=== PATIENT | male | born 1975 | race Caucasian/White ===

== ENCOUNTER 2017-04-17 19:30 | Emergency (ER) | payer SELFPAY ==
[~2017-04-17] VITALS: Ht 165.1 cm; Wt 72.6 kg
--- NOTE | 2017-04-17 19:37 | NUR ---
PT AMBULATORY TO ER BED 14. PRESENTS W/ LUE AND L KNEE PAIN AND SWELLING. PT ADMITS TO SHOOTING HEROIN INTRAMUSCULAR. GOWNED AND PLACED ON MONITOR. NAD NOTED. AWAITING MD BELLO.
[2017-04-17 21:29] LABS: CALCIUM, SERUM 8.6 mg/dL (8.5-10.1); CARBON DIOXIDE 23 mmol/L (21-32); CHLORIDE 102 mmol/L (98-107); CREATININE 0.9 mg/dL (0.6-1.3); GLUCOSE 156 mg/dL (74-106); POTASSIUM 3.9 mmol/L (3.5-5.1); SODIUM SERUM 134 mmol/L (136-145); UREA NITROGEN, BLOOD 16 mg/dL (7-18)
--- NOTE | 2017-04-17 21:39 | NUR ---
PT TO RADIOLOGY FOR CHEST CTA VIA [facility].
[2017-04-17] MEDS ORDERED: IOHEXOL-350 100 ML VIAL IV ONE (21:41)
[2017-04-17 21:47] LABS: B-TYPE NATRIURETIC PEPTIDE 59 PG/ML (0-125)
[2017-04-17 21:48] LABS: BASOPHILS % (AUTO) 0.3 % (0.0-2.0); EOSINOPHILS # (AUTO) 0.2 /CMM (0.0-0.7); EOSINOPHILS % (AUTO) 1.7 % (0.0-6.0); HEMATOCRIT 34 % (39-51); HEMOGLOBIN 11.2 g/dL (13.5-17.5); LYMPHOCYTES # (AUTO) 1.4 /CMM (0.8-4.8); MEAN CORPUSCULAR HEMOGLOBIN 25 PG (26.0-33.0); MEAN CORPUSCULAR HGB CONC 33 g/dl (31.0-36.0); MEAN CORPUSCULAR VOLUME 76 fL (80-96); MONOCYTES # (AUTO) 0.6 /CMM (0.1-1.30); MONOCYTES % (AUTO) 6.1 % (2.0-12.0); NEUTROPHILS # (AUTO) 7.8 /CMM (1.8-8.9); NEUTROPHILS % (AUTO) 77.9 % (43.0-81.0); PLATELET COUNT (AUTO) 388 /CMM (150-450); RED BLOOD CELL COUNT(AUTO) 4.45 MIL/uL (4.5-6.0); WHITE BLOOD COUNT (AUTO) 9.9 K/uL (4.3-11.0)
[2017-04-17 21:51] LABS: TROPONIN I < 0.017 ng/mL (0.00-0.056)
--- NOTE | 2017-04-17 22:06 | NUR ---
U/S TECH AT BEDSIDE FOR DUPLEX ULTRASOUND.
[2017-04-17 22:17] LABS: D-DIMER 1.33 mg/L(FEU (0.17-0.50); INR 0.88 (0.87-1.13)
[2017-04-17] MEDS ORDERED: CEFTRIAXONE 1 G VIAL ONE (22:45)
[2017-04-17] MEDS ORDERED: LIDOCAINE /MPF 1% VIAL 5 ML VIAL ONE (22:46)
[2017-04-17] MEDS: CEFTRIAXONE 1GM BAG (ER ONLY) 50 ML IV ONE (22:54)
--- NOTE | 2017-04-17 22:55 | NUR ---
Patient discharged to home in stable condition. Written and verbal after care instructions given. Patient verbalizes understanding of instruction.IV removed. Catheter intact and site benign. Pressure and 4x4 applied to site. No bleeding noted.
[2017-04-17 22:56] VITALS: BP 128/80
== END 2017-04-17 22:57 | disposition home or self-care (01) ==
LOC: ER 19:30
DX: S83.92XA Sprain of unspecified site of left knee, initial encounter (principal); L03.114 Cellulitis of left upper limb; D50.9 Iron deficiency anemia, unspecified; F19.10 Other psychoactive substance abuse, uncomplicated; X58.XXXA Exposure to other specified factors, initial encounter; Y93.89 Activity, other specified; Y92.89 Other specified places as the place of occurrence of the external cause; Y99.8 Other external cause status
CPT/HCPCS: 36415; 73564-TC; 80048-TC; 83605-TC; 83880; 84484-TC; 85025-TC; 85378-TC; 85730-TC; 87040-TC; 93971-TC; A4606; J0696; J3490; Q9967; Z7610

== ENCOUNTER 2017-05-16 02:04 | Emergency (ER) | payer SELFPAY ==
[~2017-05-16] VITALS: Ht 172.7 cm; Wt 72.6 kg
[2017-05-16 02:54] VITALS: BP 132/84
--- NOTE | 2017-05-16 02:54 | NUR ---
PT TO ER BED 7. PT BIB SELF FROM STREET, PT C/O ABSCESSES ON LEFT SHOULDER AND RIGHT THIGH. PT PLACED ON INVESTIGATOR VICE. VSS/RESP EVEN UNLABORED/NAD NOTED/SKIN WARM AND DRY/DENIES N-V-D/ AFEBRILE/AOX4. AWAITING MD BELLO.
== END 2017-05-16 05:38 | disposition home or self-care (01) ==
LOC: ER 02:04
DX: F11.10 Opioid abuse, uncomplicated (principal); R76.11 Nonspecific reaction to tuberculin skin test without active tuberculosis
CPT/HCPCS: 71045; 99284; A4606; Z7610

== ENCOUNTER 2017-06-04 09:30 | Inpatient (IN) | payer MEDICAID ==
[~2017-06-04] VITALS: Ht 165.1 cm; Wt 81.6 kg
[2017-06-04 10:31] LABS: BASOPHILS % (AUTO) 0.3 % (0.0-2.0); EOSINOPHILS % (AUTO) 3.4 % (0.0-6.0); HEMATOCRIT 34 % (39-51); HEMOGLOBIN 11.6 g/dL (13.5-17.5); LYMPHOCYTES % (AUTO) 27.5 % (20.0-44.0); MEAN CORPUSCULAR HEMOGLOBIN 26 PG (26.0-33.0); MEAN CORPUSCULAR HGB CONC 34 g/dl (31.0-36.0); MEAN CORPUSCULAR VOLUME 77 fL (80-96); MONOCYTES % (AUTO) 7.8 % (2.0-12.0); PLATELET COUNT (AUTO) 413 /CMM (150-450); RDW COEFFICIENT OF VARIATION 15.6 (11.5-15.0); RED BLOOD CELL COUNT(AUTO) 4.49 MIL/uL (4.5-6.0); WHITE BLOOD COUNT (AUTO) 6.9 K/uL (4.3-11.0)
[2017-06-04 10:32] LABS: EOSINOPHILS # (AUTO) 0.2 /CMM (0.0-0.7); LYMPHOCYTES # (AUTO) 1.9 /CMM (0.8-4.8); MONOCYTES # (AUTO) 0.5 /CMM (0.1-1.30); NEUTROPHILS # (AUTO) 4.2 /CMM (1.8-8.9)
[2017-06-04 10:50] LABS: CALCIUM, SERUM 8.8 mg/dL (8.5-10.1); CREATININE 1.1 mg/dL (0.6-1.3); POTASSIUM 3.8 mmol/L (3.5-5.1)
[2017-06-04] MEDS ORDERED: IOHEXOL-300 100 ML VIAL IV ONE (11:47)
[2017-06-04] MEDS ORDERED: IV NS 0.9% 0 ML IV ONE (11:47)
--- NOTE | 2017-06-04 11:53 | NUR ---
CALLED NURSING SUPERVIVOR, REQUESTED A MED LINE.
--- NOTE | 2017-06-04 13:12 | NUR ---
MD HOLM FOR CT WITHOUT CONTRAST. PAGED RADIOLOGY
[2017-06-04] MEDS ORDERED: PIPERACILLIN /TAZOBACTAM 3.375 G in IV D5W 50 ML IV ONE (16:30)
[2017-06-04] MEDS ORDERED: VANCOMYCIN 1 GM in IV D5W 250 ML IV ONE (16:30)
--- NOTE | 2017-06-04 16:44 | NUR ---
DR COPE SPEAKING WITH ANA AT THIS TIME
[2017-06-04 17:00] VITALS: BP 154/95
--- NOTE | 2017-06-04 17:53 | NUR ---
RN NOTES: GLEN CHRISTIANSEN,YANCY, REGULAR DIET
[2017-06-04] MEDS ORDERED: Z GUARD REMEDY 2 OZ OINT TP PRN (18:30)
[2017-06-04] MEDS ORDERED: ONDANSETRON HCL/PF 4 MG/2 ML VIAL IVP PRN (18:30)
[2017-06-04] MEDS ORDERED: ENOXAPARIN SODIUM 40 MG/0.4 ML DISP.SYRIN SQ SCH (18:30)
[2017-06-04] MEDS ORDERED: ACETAMINOPHEN 325 MG TABLET PO PRN (18:30)
[2017-06-04] MEDS ORDERED: MAGNESIUM HYDROXIDE 30 ML UDC PO PRN (18:30)
[2017-06-04] MEDS ORDERED: ZOLPIDEM TARTRATE 5 MG TABLET PO PRN (18:30)
[2017-06-04] MEDS: IV NS 0.9% 1,000 ML IV PRN (18:41)
--- NOTE | 2017-06-04 19:10 | NUR ---
RN NOTES: PATIENT ADMITTED TO UNIT AT 1700 FROM ER. PATIENT STABLE. NONLABORED BREATHING NOTED ON ROOM AIR. NO SIGNS OF DISTRESS. PATIENT HAS A PATENT MIDLINE ON LEFT UPPER ARM AND IS INTACT. PATIENT'S WOUND ASSESSED AND PICTURES PLACED IN CART. NO OOZING NOTED AT THE MOMENT. PATIENT DENYING PAIN. NONPITTING EDEMA NOTED ON BOTH UPPER EXTREMITIES. PATIENT DENYING NAUSEA AND DENYING VOMITING. NO SEIZURES NOTED. BED IN LOWEST LOCKED POSITION. CALL LIGHT WITHIN REACH. PATIENT DENYING HALLUCINATIONS, EDUCATED ON SIGNS AND SYMPTOMS OF WITHDRAWAL. PATIENT VERBALIZED UNDERSTANDING. ENDORSED TO NEXT SHIFT
[2017-06-04 20:00] VITALS: BP 129/78
[2017-06-04] MEDS: HYDROCODONE/APAP 5/325MG 1 EACH TABLET PO PRN (22:26)
--- NOTE | 2017-06-04 22:26 | NUR ---
ANTWON GEN PAIN JELENA HIS BONE PATIENT STATED. 1 TAB OF NORCO ADMINISTERED. BEDREST INSTRUCTED.
[2017-06-05] MEDS: LORAZEPAM 1 MG TABLET PO PRN ×2 (00:15→07:38)
--- NOTE | 2017-06-05 00:30 | NUR ---
MSRN VERBALIZES INCREASING ANXIETY, WANTED XANAX. PLACED CALL TO DR MORA, ORDERS RECEIVED TO GIVE ATIVAN 1MG PO Q 6 PRN. FIRST DOSE ADMIISTERED.
--- NOTE | 2017-06-05 03:47 | NUR ---
MSRN SLEEPING APPEARS COMFORTABLE. CLOSELY WATCHED.
[2017-06-05] MEDS: HYDROCODONE/APAP 5/325MG 1 EACH TABLET PO PRN (04:33)
--- NOTE | 2017-06-05 06:47 | NUR ---
MSRN SLEPT WELL FROM ATIVAN, IVF CONTINUED.
[2017-06-05 07:22] LABS: BASOPHILS % (AUTO) 0.2 % (0.0-2.0); EOSINOPHILS # (AUTO) 0.1 /CMM (0.0-0.7); EOSINOPHILS % (AUTO) 1.6 % (0.0-6.0); HEMATOCRIT 34 % (39-51); HEMOGLOBIN 11.6 g/dL (13.5-17.5); LYMPHOCYTES # (AUTO) 1.4 /CMM (0.8-4.8); MEAN CORPUSCULAR HEMOGLOBIN 26 PG (26.0-33.0); MEAN CORPUSCULAR HGB CONC 34 g/dl (31.0-36.0); MEAN CORPUSCULAR VOLUME 77 fL (80-96); MONOCYTES # (AUTO) 0.5 /CMM (0.1-1.30); MONOCYTES % (AUTO) 5.6 % (2.0-12.0); NEUTROPHILS # (AUTO) 6.2 /CMM (1.8-8.9); NEUTROPHILS % (AUTO) 75.6 % (43.0-81.0); PLATELET COUNT (AUTO) 441 /CMM (150-450); RDW COEFFICIENT OF VARIATION 15.8 (11.5-15.0); RED BLOOD CELL COUNT(AUTO) 4.48 MIL/uL (4.5-6.0); WHITE BLOOD COUNT (AUTO) 8.2 K/uL (4.3-11.0)
[2017-06-05 07:56] LABS: CALCIUM, SERUM 8.8 mg/dL (8.5-10.1); PHOSPHORUS 3.6 mg/dL (2.5-4.9); POTASSIUM 3.8 mmol/L (3.5-5.1)
[2017-06-05 08:00] VITALS: BP 150/91
[2017-06-05] MEDS: IV NS 0.9% 1,000 ML IV PRN (08:12)
--- NOTE | 2017-06-05 13:00 | NUR ---
RN NOTES: PATIENT LEFT AMA. MIDLINE REMOVED. PATIENT OFFERED EXISTCARE WELL EDUCATION. PATIENT REFUSED. EXPLAINED BENEFITS AND RISKS OF THAT. PATIENT REFUSING AND INSISTING THAT HE WANTS TO LEAVE. HE REFUSED TO HAVE WOUND SWAB AND MRSA SWAB DONE EARLIER. DISCUSSED THAT MULTIPLE TIMES AND EXPLAINED OUR INFECTION CONTROL POLICIES. PATIENT STILL REFUSED. PATIENT STABLE UPON LEAVING. AMBULATORY. NO RUNNY NOSE, NO DILATED PUPILS, NO SIGNS AND SYMPTOMS OF WITHDRAWL PRIOR TO LEAVING. PATIENT DENIED HALLUCINATIONS AND REFUSED ATIVAN WHEN OFFERED. DISCUSSED WITH HIM SIGNS AND SYMPTOMS OF DRUG WITHDRAWL WELL SIGNS AND SYMPTOMS OF INFECTION. HE STATED " I KNOW I KNOW. I WANNA LEAVE!" ANA CHRISTIANSEN NP NOTIFIED. NO SEIZURES DURING SHIFT
--- NOTE | 2017-06-05 13:05 | NUR ---
RN NOTES: UPON CLEANING THE ROOM, A CELLPHONE WAS FOUND. ATTEMPTED TO CATCH UP WITH PATIENT. HOWEVER, HE LEFT. CALLED PHONE NUMBERS OF NEXT OF KIN ON FACESHEET. NON-REACHING NUMBER. PHONE TO BE TAKEN TO NURSING OFFICE UPON END OF SHIFT IF PATIENT DOES NOT COME TO CLAIM IT DURING SHIFT
--- NOTE | 2017-06-05 19:10 | NUR ---
RN NOTES: PATIENT CAME TO HOSPITAL ENTRANCE, WAITED AT SECURITY CHECK POINT. PHONE DELIVERED TO HIM BY STAFF MEMBER TO HIM
--- NOTE | 2017-06-06 17:41 | NUR ---
Bank Compliance Officer Consult was requested from Rena Vaughn NP regarding homelessness. Pt is a 41 year old male who was admitted to [facility] for multiple abscesses on his arms as well as lower extremities. SW went to do assessment of pt., however per SILVERIO Galeano the patient left AMA. neonatal social worker was unable to conduct assessment and provide resources.
== END 2017-06-05 13:03 | disposition left against medical advice (07) | DRG 351 ==
LOC: ER 09:33 → MEDSG2 16:45
PROVIDERS: ADMIT Nurse Practitioner Acute Care; ATTEND Nurse Practitioner Acute Care
DX: M79.5 Residual foreign body in soft tissue (principal); E87.1 Hypo-osmolality and hyponatremia; S71.101A Unspecified open wound, right thigh, initial encounter; S41.101A Unspecified open wound of right upper arm, initial encounter; S41.102A Unspecified open wound of left upper arm, initial encounter; X58.XXXA Exposure to other specified factors, initial encounter; Y93.89 Activity, other specified; Y92.89 Other specified places as the place of occurrence of the external cause; E86.0 Dehydration; F11.10 Opioid abuse, uncomplicated; Z59.0 Homelessness
CPT/HCPCS: 36415; 73700-TC; 80048-TC; 80061-TC; 80305; 83735-TC; 84100-TC; 85025-TC; 87040-TC; 87081-TC; A4606; J1650; J2543; J3370; J7030; J7050; J7060; Q9967; Z7610

== ENCOUNTER 2017-06-11 18:24 | Inpatient (IN) | payer MEDICAID ==
[~2017-06-11] VITALS: Ht 165.1 cm; Wt 67.1 kg
--- NOTE | 2017-06-11 19:45 | NUR ---
PT AMBULATORY TO ER BED 14. PT BIB SELF C/O ABSCESS ON RT ARM, RT LEG, LEFT LEG . HX DRUG ABUSE. PT PLACED IN GOWN AND ON PARALEGAL LEGAL SECRETARY. VSS/RESP EVEN UNLABORED/NAD NOTED/SKIN WARM AND DRY/DENIES N-V-D/AOX4. AWAITING MD BELLO.
--- NOTE | 2017-06-11 19:55 | NUR ---
BOILER ATTENDANT AT BEDSIDE FOR EVAL.
--- NOTE | 2017-06-11 20:00 | NUR ---
I & D SETUP AT BEDSIDE FOR PUBLIC INFORMATION SPECIALIST.
[2017-06-11] MEDS ORDERED: LIDOCAINE 1% INJ 50 ML MDV IJ ONE ×2 (20:10→20:30)
--- NOTE | 2017-06-11 20:10 | NUR ---
IT BUSINESS PROCESS ARCHITECT AT BEDSIDE FOR PROCEDURE.
--- NOTE | 2017-06-11 20:36 | NUR ---
LAB AT BEDSIDE FOR DRAW.
[2017-06-11 20:39] LABS: BASOPHILS % (AUTO) 0.3 % (0.0-2.0); EOSINOPHILS # (AUTO) 0.1 /CMM (0.0-0.7); EOSINOPHILS % (AUTO) 1.5 % (0.0-6.0); HEMATOCRIT 34 % (39-51); HEMOGLOBIN 11.7 g/dL (13.5-17.5); LYMPHOCYTES # (AUTO) 1.6 /CMM (0.8-4.8); LYMPHOCYTES % (AUTO) 17.7 % (20.0-44.0); MEAN CORPUSCULAR HEMOGLOBIN 26 PG (26.0-33.0); MEAN CORPUSCULAR HGB CONC 34 g/dl (31.0-36.0); MEAN CORPUSCULAR VOLUME 76 fL (80-96); MONOCYTES # (AUTO) 0.4 /CMM (0.1-1.30); MONOCYTES % (AUTO) 4.4 % (2.0-12.0); NEUTROPHILS # (AUTO) 6.9 /CMM (1.8-8.9); NEUTROPHILS % (AUTO) 76.1 % (43.0-81.0); PLATELET COUNT (AUTO) 403 /CMM (150-450); RDW COEFFICIENT OF VARIATION 14.6 (11.5-15.0); RED BLOOD CELL COUNT(AUTO) 4.51 MIL/uL (4.5-6.0)
[2017-06-11 20:50] LABS: CALCIUM, SERUM 8.8 mg/dL (8.5-10.1); POTASSIUM 4.1 mmol/L (3.5-5.1)
[2017-06-11 20:56] LABS: ALBUMIN 2.9 g/dL (3.4-5.0); BILIRUBIN,TOTAL 0.3 mg/dL (0.2-1.0); TOTAL PROTEIN, SERUM 8.5 g/dL (6.4-8.2)
--- NOTE | 2017-06-11 21:33 | NUR ---
CALLED NURSING SUP. FOR MS BED
--- NOTE | 2017-06-11 21:54 | NUR ---
MS 204-1
--- NOTE | 2017-06-11 22:03 | NUR ---
REPORT GIVEN TO SILVERIO CONKLIN FOR HEATHER.
[2017-06-11] MEDS ORDERED: CLINDAMYCIN 900 MG/6 ML VIAL ONE (22:14)
[2017-06-11] MEDS ORDERED: CLINDAMYCIN IV RTU IN D5W 900 MG/50 ML PIGGYBACK IV ONE (22:30)
--- NOTE | 2017-06-11 22:52 | NUR ---
PT TRANSPORTED VIA STRETCHER TO [facility] 204-1 WITH EMT.
[2017-06-11 23:00] VITALS: BP 147/86
--- NOTE | 2017-06-11 23:00 | NUR ---
MS RN NOTE RECEIVED PATIENT FROM ER VIA WHEELCHAIR FOR ADMISSION, PATIENT IS ALERT AND ORIENTEDX4, AMBULATORY, DENIES RESPIRATORY DISTRESS AND PAIN AT THIS TIME. BOTH EXTREMITIES HAS MULTIPLE OLD SCARS FROM HEROIN USE, ABSCESSES ARE PRESENT ON BOTH THIGH AND LOWER BACK. PICTURES TAKEN AND PUT THEM IN A CHART. SRX2, BED IN LOW POSITION, CALL LIGHT WITHIN REACH, WILL CONTINUE TO MONITOR THE PATIENT.
[2017-06-11] MEDS ORDERED: ONDANSETRON HCL/PF 4 MG/2 ML VIAL IVP PRN (23:30)
[2017-06-11] MEDS ORDERED: IBUPROFEN 600 MG TABLET PO PRN (23:30)
[2017-06-11] MEDS ORDERED: Z GUARD REMEDY 2 OZ OINT TP PRN (23:30)
[2017-06-11] MEDS ORDERED: ACETAMINOPHEN 325 MG TABLET PO PRN (23:30)
[2017-06-11] MEDS ORDERED: MAGNESIUM HYDROXIDE 30 ML UDC PO PRN (23:30)
[2017-06-12] MEDS ORDERED: DEXTROSE 50%-WATER 50 ML DISP.SYRIN IV PRN
[2017-06-12] MEDS: GUAIFENESIN LA 600 MG TABLET.SA PO SCH ×3 (02:29→16:41)
--- NOTE | 2017-06-12 02:30 | NUR ---
MS RN NOTE PATIENT COMPLAINS OF CHEST CONGESTION BECAUSE OF PHLEGM, AND WANTS TO TAKE MUCINEX. CONTACTED YOSSI MARTINI AND ORDERED MUCINEX 600MG PO BID. ORDERS PUT IN AND WILL CARRY OUT.
[2017-06-12] MEDS: ZOLPIDEM TARTRATE 5 MG TABLET PO PRN ×2 (02:31→22:26)
[2017-06-12] MEDS ORDERED: CLINDAMYCIN 900 MG/6 ML VIAL ONE (05:10)
[2017-06-12] MEDS: CLINDAMYCIN 600 MG in IV D5W 50 ML IV SCH ×3 (05:27→21:00)
[2017-06-12] MEDS: BLOOD SUGAR DIAGNOSTIC 1 EACH STRIP IN SCH ×4 (06:14→21:08)
[2017-06-12 06:34] LABS: BASOPHILS % (AUTO) 0.3 % (0.0-2.0); EOSINOPHILS # (AUTO) 0.2 /CMM (0.0-0.7); EOSINOPHILS % (AUTO) 2.4 % (0.0-6.0); HEMATOCRIT 33 % (39-51); HEMOGLOBIN 11.1 g/dL (13.5-17.5); LYMPHOCYTES # (AUTO) 1.5 /CMM (0.8-4.8); LYMPHOCYTES % (AUTO) 20.5 % (20.0-44.0); MEAN CORPUSCULAR HEMOGLOBIN 26 PG (26.0-33.0); MEAN CORPUSCULAR HGB CONC 34 g/dl (31.0-36.0); MEAN CORPUSCULAR VOLUME 77 fL (80-96); MONOCYTES # (AUTO) 0.4 /CMM (0.1-1.30); MONOCYTES % (AUTO) 4.9 % (2.0-12.0); NEUTROPHILS # (AUTO) 5.1 /CMM (1.8-8.9); NEUTROPHILS % (AUTO) 71.9 % (43.0-81.0); PLATELET COUNT (AUTO) 403 /CMM (150-450); RDW COEFFICIENT OF VARIATION 15.2 (11.5-15.0); RED BLOOD CELL COUNT(AUTO) 4.26 MIL/uL (4.5-6.0); WHITE BLOOD COUNT (AUTO) 7.1 K/uL (4.3-11.0)
--- NOTE | 2017-06-12 06:35 | NUR ---
MS RN NOTE PATIENT IS SLEEPING IN BED COMFORTABLY, DENIES CHEST CONGESTION AFTER TAKING MUCINEX, NO RESPIRATORY DISTRESS NOTED WELL. LEFT EJ 20G IS PATENT AND INTACT, HL ONLY. NO SIGNIFICANT CHANGE OF CONDITION PRESENT SINCE ADMISSION. WILL ENDORSE TO DAY SHIFT FOR HEATHER.
[2017-06-12 07:05] LABS: CALCIUM, SERUM 8.4 mg/dL (8.5-10.1); CREATININE 0.9 mg/dL (0.6-1.3); PHOSPHORUS 3.7 mg/dL (2.5-4.9); POTASSIUM 4.2 mmol/L (3.5-5.1)
--- NOTE | 2017-06-12 07:30 | NUR ---
MS RN OPENING NOTES RECEIVED PATIENT IN STABLE CONDITION. IN NO APPARENT DISTRESS. BEDSIDE RAILS ARE UPX2. BED IS LOCKED AND LOWERED. CALL LIGHT IS WITHIN REACH. WILL ENDORSE CARE TO PEPPER CUTTER NURSE FOR HEATHER.
[2017-06-12 08:00] VITALS: BP 133/89
[2017-06-12] MEDS: LACTOBACILLUS RHAMNOSUS GG 1 EACH CAP.SPRINK PO SCH ×2 (09:05→16:37)
[2017-06-12] MEDS: HYDROCODONE/APAP 5/325MG 1 EACH TABLET PO PRN ×3 (12:06→21:08)
[2017-06-12 16:00] VITALS: BP 146/89
[2017-06-12] MEDS ORDERED: LORAZEPAM INJ 2 MG/ML VIAL IV ONE (19:00)
--- NOTE | 2017-06-12 19:00 | NUR ---
MS RN CLOSING NOTES PATIENT IS IN STABLE CONDITION. IN NO APPARENT DISTRESS. BEDSIDE RAILS ARE UPX2. BED IS LOCKED AND LOWERED. CALL LIGHT IS WITHIN REACH. WILL ENDORSE CARE TO SAMPLE DRILLER NURSE FOR HEATHER.
--- NOTE | 2017-06-12 19:30 | NUR ---
RN NOTES RECEIVED PATIENT IN BED AWAKE, AO X 3, ABLE TO MAKE NEEDS KNOWN. NO ACUTE DISTRESS NOTED. DENIES PAIN AT THIS TIME. IV SITE PATENT, INTACT; FLUSHED. NO SYMPTOMS OF HYPER/HYPOGLYCEMIA. SAFETY REMINDERS GIVEN. ON LOW BED WITH BILATERAL UPPER SIDE RAILS UP. CALL GILLESPIE WITHIN EASY REACH. WILL CONTINUE TO MONITOR.
[2017-06-12 20:00] VITALS: BP 144/89
[2017-06-13] VITALS (14 sets, daily range): BP systolic 118–154; BP diastolic 64–97
[2017-06-13] MEDS: HYDROCODONE/APAP 5/325MG 1 EACH TABLET PO PRN (02:43)
--- NOTE | 2017-06-13 04:16 | NUR ---
RN NOTES PATIENT ASKING FOR SOMETHING FOR ANXIETY; ATIVAN REORDERED IN PLACE OF THE 0 ATIVAN THAT COULD NOT BE TAKEN OUT OF OMNICELL.
[2017-06-13] MEDS ORDERED: LORAZEPAM INJ 2 MG/ML VIAL IV ONE ×2 (04:30→10:30)
[2017-06-13] MEDS: CLINDAMYCIN 600 MG in IV D5W 50 ML IV SCH ×3 (04:51→21:29)
--- NOTE | 2017-06-13 06:16 | NUR ---
RN NOTES PATIENT ASLEEP, EASILY AROUSABLE. RESPIRATIONS EVEN. NO SIGNS OF PAIN NOTED. DUE MED GIVEN WITH NO ASE NOTED. NEEDS ATTENDED. SAFETY PRECAUTIONS AND COMFORT MEASURES IN PLACE. WILL GIVE REPORT TO DAY SHIFT FOR CONTINUITY OF CARE.
[2017-06-13] MEDS: BLOOD SUGAR DIAGNOSTIC 1 EACH STRIP IN SCH ×4 (06:42→21:29)
[2017-06-13] MEDS: INSULIN ASPART/LISPRO 100 UNIT/ML CARTRIDGE SQ PRN ×4 (06:44→21:32)
--- NOTE | 2017-06-13 08:00 | NUR ---
MS RN NOTES PATIENT IN BED RESTING NO SOB OR ACUTE DISTRESS NOTED. PERIPHERAL IV INTACT PATENT. PATIENT ALERT, ORIENTED X3. BED IN LOW LOCKED POSITION. CALL LIGHT WITHIN REACH. PATIENT STATES HE WANTS TO BE LEFT ALONE. WILL CONTINUE TO MONITOR.
[2017-06-13] MEDS: GUAIFENESIN LA 600 MG TABLET.SA PO SCH ×2 (08:35→16:52)
[2017-06-13] MEDS: LACTOBACILLUS RHAMNOSUS GG 1 EACH CAP.SPRINK PO SCH ×2 (08:35→16:52)
--- NOTE | 2017-06-13 10:11 | NUR ---
WOUND CARE CONSULT: PT PRESENTS WITH RT ARM BUMP WITH PURULENT DRAINAGE AND RT THIGH OPEN WOUND WITH UNDERMINING. PT STATES THAT A NEEDLE IS INSIDE HIS RT THIGH. RECOMMEND SURGICAL CONSULT. PT REFUSED ASSESSMENT OF BACK. WILL SEE PRN. CURRENT BRIANNE SCORE IS 20. Addendum: 06/13/17 at 1013 by TIERNEY CHRIS WNDNU Amended: Links added.
[2017-06-13] MEDS ORDERED: METHADONE HCL 10 MG TABLET PO PRN (12:00)
[2017-06-13] MEDS: METHADONE HCL 10 MG TABLET PO SCH (12:35)
--- NOTE | 2017-06-13 17:33 | NUR ---
Fuel Assembler consult was requested from Dr. Wall in regards to heroin abuse. Pt is a 41 year old male who was admitted into [facility] for complaints of multiple skin abscesses from IV drug abuse. Patient is oriented x4. Patients emergency contact is his girlfriend Pao ([phone]). Patient denies any use of alcohol. Pt reports that he uses 2 grams of heroin a day but wishes to quit by going to rehab. Patient states that he has been to treatment once at [facility] ([address] [place], [place] [address]; ) but left the next day. Patient denies any suicidal or homicidal ideation. Patient reports that he just applied for Medical and wants to be placed in a drug addiction treatment center. Patient states that he wanted to go to [facility] ([address] [place] [address]; [phone]) or [facility]([address] [place] [address];) however, the facilities reported that his sores must be healed before entrance. SW provided additional referrals to [facility] ([address] [place] [address]; ), [facility] ([address] [place] [address]; [phone]), and [facility] ([address] [place] [address]; [phone]). KYUNG spoke with SILVERIO Owens in regards to referrals given and pt.s disposition. Plan: SW will call facilities to see if anyone would take the patient upon discharge. Patient will call facilities to see if they will admit him upon discharge.
--- NOTE | 2017-06-13 17:40 | NUR ---
Geophysical Drafter Update: KYUNG provided pt. with [facility] ([address] [place] [address]; ), [facility] ([address] [place] [address]; ), and [facility] ([address] [place] [address]; ). KYUNG provided pt. with Homeless Residential resources: [facility] ([address] [place] [address]; [phone]), [facility] ([address] [place] [address]; [phone]), and [facility] ([address] [place] [address]; [phone]).
--- NOTE | 2017-06-13 19:00 | NUR ---
MS RN NOTES PATIENT SEEN AND EVALUATED BY DR. ESTEVEZ ORDERS NOTED AND CARRIED OUT.
[2017-06-13] MEDS: ZOLPIDEM TARTRATE 5 MG TABLET PO PRN (21:30)
[2017-06-14] VITALS (8 sets, daily range): BP systolic 119–142; BP diastolic 64–79
[2017-06-14] MEDS: CLINDAMYCIN 600 MG in IV D5W 50 ML IV SCH ×3 (05:53→20:25)
[2017-06-14] MEDS: BLOOD SUGAR DIAGNOSTIC 1 EACH STRIP IN SCH ×4 (06:50→21:42)
--- NOTE | 2017-06-14 08:00 | NUR ---
MS RN NOTES PATIENT IN BED RESTING NO SOB OR ACUTE DISTRESS NOTED. PATIENT ALERT, ORIENTED X4. NPO AWAITING FOR SURGERY IN THE AFTERNOON. MIDLINE INTACT PATENT ON LEFT UPPER AM . BED IN LOW LOCKED POSITION. CALL LIGHT WITHIN REACH. WILL CONTINUE TO MONITOR.
[2017-06-14] MEDS: METHADONE HCL 10 MG TABLET PO SCH (09:00)
[2017-06-14] MEDS: LACTOBACILLUS RHAMNOSUS GG 1 EACH CAP.SPRINK PO SCH ×2 (09:00→17:11)
[2017-06-14] MEDS: GUAIFENESIN LA 600 MG TABLET.SA PO SCH ×2 (09:00→17:11)
--- NOTE | 2017-06-14 13:45 | NUR ---
MS RN NOTES PATIENT TRANSFERRED TO OR IN STABLE CONDITION.
[2017-06-14] MEDS ORDERED: SUCCINYLCHOLINE CHLORIDE 20 MG/ML VIAL ONE (14:56)
[2017-06-14] MEDS ORDERED: MIDAZOLAM HCL 2 MG/2ML VIAL ONE (14:56)
[2017-06-14] MEDS ORDERED: FENTANYL PF 250MCG/5ML AMPUL ONE (14:56)
[2017-06-14] MEDS ORDERED: PROPOFOL 20 ML IV ONE (15:12)
[2017-06-14] MEDS ORDERED: SEVOFLURANE 250 ML BOTTLE IH ONE (15:40)
[2017-06-14] MEDS ORDERED: FENTANYL PF 100MCG/2ML AMPUL ONE ×2 (16:05→16:14)
[2017-06-14] MEDS ORDERED: MORPHINE SULFATE INJ 4 MG/ML DISP.SYRIN ONE ×2 (16:10→16:34)
--- NOTE | 2017-06-14 17:45 | NUR ---
MS RN NOTES PATIENT RETURNED FROM OR IN STABLE CONDITION VS WNL. PATIENT ALERT, ORIENTED X4 WILL CONTINUE TO MONITOR.
--- NOTE | 2017-06-14 18:47 | NUR ---
MS RN NOTES PATIENT IN BED RESTING NO SOB OR ACUTE DISTRESS NOTED. ALL DUE MEDICATIONS ADMINISTERED. ALL NEEDS MET. VS WNL. MIDLINE INTACT PATENT. WILL ENDORSE CARE TO PM SHIFT.
--- NOTE | 2017-06-14 19:40 | NUR ---
MS RN NOTE: PATIENT RESTING IN BED, NO ACUTE DISTRESS NOTED. BREATHING EVEN AND UNLABORED, NO SOB NOTED. MIDLINE TO FELICITA IN PLACE. NO S/S OF HYPER/HYPOGLYCEMIA NOTED. BED LOCKED AND IN LOWEST POSITION, CALL LIGHT IN REACH. WILL CONTINUE TO MONITOR
[2017-06-14] MEDS: HYDROCODONE/APAP 5/325MG 1 EACH TABLET PO PRN (20:27)
--- NOTE | 2017-06-14 20:45 | NUR ---
MS RN NOTE: PATIENT COMPLAINS OF PAIN 7/10 TO RIGHT THIGH, NORCO 5/325MG 1 TAB ORAL GIVEN PER MD ORDER. WILL CONTINUE TO MONITOR.
[2017-06-14] MEDS: ZOLPIDEM TARTRATE 5 MG TABLET PO PRN (21:42)
--- NOTE | 2017-06-14 21:45 | NUR ---
MS RN NOTE: PATIENT BLOOD SUGAR LEVEL 201 MG/DL, PATIENT TO RECEIVE 4 UNITS OF INSULIN PER SLIDING SCALE. PATIENT ALSO REQUEST FOR SLEEPING MEDICATION, AMBIEN 5MG 1 TAB ORAL GIVEN PER MD ORDER. WILL CONTINUE TO MONITOR.
[2017-06-14] MEDS: INSULIN ASPART/LISPRO 100 UNIT/ML CARTRIDGE SQ PRN (21:48)
[2017-06-15] MEDS: CLINDAMYCIN 600 MG in IV D5W 50 ML IV SCH ×3 (05:14→21:16)
[2017-06-15] MEDS: HYDROCODONE/APAP 5/325MG 1 EACH TABLET PO PRN ×2 (05:14→21:17)
[2017-06-15] MEDS: BLOOD SUGAR DIAGNOSTIC 1 EACH STRIP IN SCH ×4 (06:31→21:18)
--- NOTE | 2017-06-15 06:45 | NUR ---
MS RN NOTE: PATIENT RESTING IN BED, NO ACUTE DISTRESS NOTED. BREATHING EVEN AND UNLABORED, NO SOB NOTED. MIDLINE TO FELICITA IN PLACE. PATIENT BLOOD SUGAR LEVEL 114 MG/DL, NO INSULIN NEEDED PER SLIDING SCALE, NO S/S OF HYPER/HYPOGLYCEMIA NOTED. BED LOCKED AND IN LOWEST POSITION, CALL LIGHT IN REACH. WILL ENDORSE TO DAY NURSE TO CONTINUE WITH PLAN OF CARE.
[2017-06-15 07:13] LABS: BASOPHILS % (AUTO) 0.2 % (0.0-2.0); EOSINOPHILS % (AUTO) 0.2 % (0.0-6.0); HEMATOCRIT 32 % (39-51); HEMOGLOBIN 10.8 g/dL (13.5-17.5); LYMPHOCYTES # (AUTO) 1.5 /CMM (0.8-4.8); LYMPHOCYTES % (AUTO) 14.8 % (20.0-44.0); MEAN CORPUSCULAR HEMOGLOBIN 26 PG (26.0-33.0); MEAN CORPUSCULAR HGB CONC 34 g/dl (31.0-36.0); MEAN CORPUSCULAR VOLUME 77 fL (80-96); MONOCYTES # (AUTO) 0.5 /CMM (0.1-1.30); MONOCYTES % (AUTO) 5.3 % (2.0-12.0); NEUTROPHILS # (AUTO) 8.2 /CMM (1.8-8.9); NEUTROPHILS % (AUTO) 79.5 % (43.0-81.0); PLATELET COUNT (AUTO) 424 /CMM (150-450); RDW COEFFICIENT OF VARIATION 15.9 (11.5-15.0); RED BLOOD CELL COUNT(AUTO) 4.17 MIL/uL (4.5-6.0); WHITE BLOOD COUNT (AUTO) 10.3 K/uL (4.3-11.0)
--- NOTE | 2017-06-15 07:15 | NUR ---
MS RN OPENING NOTES RECEIVED PT FROM NIGHTSHIFT NURSE IN STABLE CONDITION. PT IS A/I X3. NO SOB OR SIGNS OF DISTRESS NOTED BREATHING IS EVEN AND UNLABORED. HE DENIES ANY PAIN AT THE TIME. WOUND DRESSINGS NOTED TO BE CLEAR, DRY, AND INTACT. RIGHT UPPER ARM MIDLINE NOTED TO BE CLEAN DRY AND INTACT. BED IN LOW LOCKED POSITION, SIDE RAILS UP X2, CALL LIGHT WITHIN REACH,. WILL CONTINUE TO MONITOR
[2017-06-15 07:22] LABS: CALCIUM, SERUM 8.4 mg/dL (8.5-10.1); CREATININE 1.1 mg/dL (0.6-1.3); POTASSIUM 4.1 mmol/L (3.5-5.1)
[2017-06-15 08:00] VITALS: BP 111/66
[2017-06-15] MEDS: GUAIFENESIN LA 600 MG TABLET.SA PO SCH ×2 (09:00→16:06)
[2017-06-15] MEDS: METHADONE HCL 10 MG TABLET PO SCH (09:04)
[2017-06-15] MEDS: LACTOBACILLUS RHAMNOSUS GG 1 EACH CAP.SPRINK PO SCH ×2 (09:04→17:02)
--- NOTE | 2017-06-15 13:38 | NUR ---
Per interdisciplinary meeting, case management will take over the case. Pt. is not appropriate for fci or detox center due to his open wound.
[2017-06-15 16:00] VITALS: BP 139/51
[2017-06-15] MEDS: INSULIN ASPART/LISPRO 100 UNIT/ML CARTRIDGE SQ PRN (17:06)
--- NOTE | 2017-06-15 19:07 | NUR ---
MS RN CLOSING NOTES PT REMAIN IN STABLE CONDITION. ALL NEEDS WERE MET DURING SHIFT AND ORDERS CARRIED OUT ACCORDINGLY. ALL DUE MEDS GIVEN. WOUND AND SKIN CARE RENDERED ORDERED. DRESSINGS ARE CLEAN, DRY, AND INTACT. MIDLINE REMAINS PATENT AND INTACT. SAFETY MEASURES REMAIN IN PLACE. WILL ENDORSE TO NIGHTSHIFT NURSE FOR HEATHER
--- NOTE | 2017-06-15 19:30 | NUR ---
RN NOTES RECEIVED PATIENT IN BED AWAKE, AO X 3, ABLE TO MAKE NEEDS KNOWN. NO ACUTE DISTRESS NOTED. DENIES ANY PAIN AT THIS TIME. IV SITE PATENT, INTACT; FLUSHED. NO SYMPTOMS OF HYPER/HYPOGLYCEMIA. SAFETY REMINDERS GIVEN. ON LOW BED WITH BILATERAL UPPER SIDE RAILS UP. CALL GILLESPIE WITHIN EASY REACH. WILL CONTINUE TO MONITOR.
[2017-06-15 20:00] VITALS: BP 134/74
[2017-06-15] MEDS: ZOLPIDEM TARTRATE 5 MG TABLET PO PRN (21:57)
[2017-06-16] MEDS: CLINDAMYCIN 600 MG in IV D5W 50 ML IV SCH (05:41)
[2017-06-16 06:36] LABS: BASOPHILS % (AUTO) 0.5 % (0.0-2.0); EOSINOPHILS # (AUTO) 0.2 /CMM (0.0-0.7); EOSINOPHILS % (AUTO) 2.2 % (0.0-6.0); HEMATOCRIT 34 % (39-51); HEMOGLOBIN 11.4 g/dL (13.5-17.5); LYMPHOCYTES # (AUTO) 2.7 /CMM (0.8-4.8); LYMPHOCYTES % (AUTO) 35.6 % (20.0-44.0); MEAN CORPUSCULAR HEMOGLOBIN 26 PG (26.0-33.0); MEAN CORPUSCULAR HGB CONC 34 g/dl (31.0-36.0); MEAN CORPUSCULAR VOLUME 77 fL (80-96); MONOCYTES # (AUTO) 0.6 /CMM (0.1-1.30); MONOCYTES % (AUTO) 7.6 % (2.0-12.0); NEUTROPHILS # (AUTO) 4.1 /CMM (1.8-8.9); NEUTROPHILS % (AUTO) 54.1 % (43.0-81.0); PLATELET COUNT (AUTO) 410 /CMM (150-450); RDW COEFFICIENT OF VARIATION 15.8 (11.5-15.0); RED BLOOD CELL COUNT(AUTO) 4.38 MIL/uL (4.5-6.0); WHITE BLOOD COUNT (AUTO) 7.6 K/uL (4.3-11.0)
--- NOTE | 2017-06-16 06:36 | NUR ---
RN NOTES PATIENT ASLEEP, EASILY AROUSABLE. RESPIRATIONS EVEN. NO SIGNS OF PAIN NOTED. DUE MEDS GIVEN WITH NO ASE NOTED. NEEDS ATTENDED. SAFETY PRECAUTIONS AND COMFORT MEASURES IN PLACE. WILL GIVE REPORT TO DAY SHIFT FOR CONTINUITY OF CARE.
[2017-06-16 06:38] LABS: CALCIUM, SERUM 8.3 mg/dL (8.5-10.1); CREATININE 1.1 mg/dL (0.6-1.3); POTASSIUM 4.1 mmol/L (3.5-5.1)
[2017-06-16] MEDS: BLOOD SUGAR DIAGNOSTIC 1 EACH STRIP IN SCH (06:44)
--- NOTE | 2017-06-16 07:25 | NUR ---
MS/RN Patient received Patient received from in store banker. A/O X4, no distress noted. Wounds with dressings dry and intact. Call light within reach, will continue to monitor and ensure safety.
[2017-06-16 08:00] VITALS: BP 135/83
[2017-06-16] MEDS: LACTOBACILLUS RHAMNOSUS GG 1 EACH CAP.SPRINK PO SCH (08:23)
[2017-06-16] MEDS: GUAIFENESIN LA 600 MG TABLET.SA PO SCH (08:23)
[2017-06-16] MEDS: HYDROCODONE/APAP 5/325MG 1 EACH TABLET PO PRN (08:23)
[2017-06-16] MEDS: METHADONE HCL 10 MG TABLET PO SCH (08:24)
--- NOTE | 2017-06-16 08:27 | NUR ---
MS/RN Unable to scan Unable to scan methadone 10mg, shows unknown barcode / UDC. Attempted several times to scan, witnessed by second RN.
[2017-06-16] MEDS ORDERED: DAKINS QUARTER STRENGTH (0.125%) 480 ML BOTTLE TOP SCH (09:00)
--- NOTE | 2017-06-16 10:00 | NUR ---
MS/RN AMA Patient left hospital against medical advice at 0950. Called to room by LEDGER POSTER, patient getting dressed and stating that he was going to leave against medical advice, stating that he is going to start withdrawing from his drugs and needed his methadone dose to be increased to at least 40mg. Explained to patient that several doctors had already been told about this but are unwilling to increase it at this time. Informed by patient that he was going to go to [facility] as they would "give me what I want" Explained to patient the riskd involved by leaving against medical advice, including increase in infection. Stated that he understood and was willing to take all responsibility for anything that may happen but insisted that he was going to get the methadone. Heplock and name band removed. AMA paper signed but left before signing exitcare and belongings list. RN did ask patient if he has all personal belongings with him and stated that everything was correct. Wallet and cell phone seen with patient as leaving. Nursing carpet finishing supervisor, admitting and MD made aware.
[2017-06-16] MEDS ORDERED: CLINDAMYCIN HCL 150 MG CAPSULE PO SCH (13:00)
== END 2017-06-16 10:00 | disposition left against medical advice (07) | DRG 383 ==
LOC: ER 18:25 → MEDSG2 22:03
PROVIDERS: ADMIT Internal Medicine; ATTEND Internal Medicine
DX: L03.115 Cellulitis of right lower limb (principal); E11.65 Type 2 diabetes mellitus with hyperglycemia; E88.09 Other disorders of plasma-protein metabolism, not elsewhere classified; L02.413 Cutaneous abscess of right upper limb; D50.9 Iron deficiency anemia, unspecified; F15.10 Other stimulant abuse, uncomplicated; D63.8 Anemia in other chronic diseases classified elsewhere; F17.210 Nicotine dependence, cigarettes, uncomplicated; G89.29 Other chronic pain; Z59.0 Homelessness; Z91.14 Patient's other noncompliance with medication regimen; L02.415 Cutaneous abscess of right lower limb; L02.416 Cutaneous abscess of left lower limb; M79.5 Residual foreign body in soft tissue; F19.10 Other psychoactive substance abuse, uncomplicated
CPT/HCPCS: 36415; 73552; 80048-TC; 80053-TC; 80061-TC; 82728-TC; 82962-TC; 83540-TC; 83605-TC; 83735-TC; 84100-TC; 85025-TC; 87040-TC; 87070-TC; 87081-TC; 88305-TC; 88312-TC; A4216; A4606; A6253; A6402; A6403; A6407; J0330; J1815; J2060; J2250; J2270; J2704; J3010; J3490; J7030; J7050; J7060; Z7610

== ENCOUNTER 2020-02-22 22:39 | Emergency (ER) | payer MEDICAID, OTHER ==
[~2020-02-22] VITALS: Ht 165.1 cm; Wt 81.6 kg
[2020-02-22 22:43] VITALS: BP 138/64
[2020-02-22] MEDS ORDERED: CEPHALEXIN MONOHYDRATE 500 MG CAPSULE PO ONE ×2 (22:57→23:00)
[2020-02-22] MEDS ORDERED: SULFAMETH/TRIMETH 800/160 MG 1 UDTAB TABLET ONE (22:57)
[2020-02-22] MEDS ORDERED: SULFAMETH/TRIMETH 800/160 MG 1 UDTAB TABLET PO ONE (23:00)
--- NOTE | 2020-02-22 23:03 | NUR ---
BILATERAL LATERAL THIGH AND R UPPER THIGH WOUND CLEANSED WITH NS, NONADHERENT DRESSING AND ABD PADS APPLIED PER ER MD ORDER.
--- NOTE | 2020-02-22 23:04 | NUR ---
Patient discharged to home in stable condition. Written and verbal after care instructions given. Patient verbalizes understanding of instruction. Pt ambulatory with a steady gait
== END 2020-02-22 23:04 | disposition home or self-care (01) ==
LOC: ER 22:40
DX: T81.41XA Infection following a procedure, superficial incisional surgical site, initial encounter (principal); E11.9 Type 2 diabetes mellitus without complications
CPT/HCPCS: 99283; A6253

== ENCOUNTER 2020-04-12 06:02 | Emergency (ER) | payer OTHER ==
[~2020-04-12] VITALS: Ht 165.1 cm; Wt 81.6 kg
[2020-04-12 06:04] VITALS: BP 119/74
[2020-04-12] MEDS ORDERED: LIDOCAINE 1% INJ 50 ML MDV IJ ONE ×2 (06:30→06:44)
[2020-04-12] MEDS ORDERED: BACITRACIN ZINC OINT PACKET 1 EA PACKET TP ONE (07:00)
== END 2020-04-12 08:17 | disposition home or self-care (01) ==
LOC: ER 06:04
DX: S80.862A Insect bite (nonvenomous), left lower leg, initial encounter (principal); S80.861A Insect bite (nonvenomous), right lower leg, initial encounter; E11.621 Type 2 diabetes mellitus with foot ulcer; L97.129 Non-pressure chronic ulcer of left thigh with unspecified severity; L97.119 Non-pressure chronic ulcer of right thigh with unspecified severity; Z59.0 Homelessness; W57.XXXA Bitten or stung by nonvenomous insect and other nonvenomous arthropods, initial encounter; Y93.89 Activity, other specified; Y92.89 Other specified places as the place of occurrence of the external cause; Y99.8 Other external cause status
CPT/HCPCS: 99282; J3490

== ENCOUNTER 2020-07-21 17:50 | Inpatient (IN) | payer OTHER ==
[~2020-07-21] VITALS: Ht 165.1 cm; Wt 73.0 kg
--- NOTE | 2020-07-21 18:40 | NUR ---
THE PATIENT BIBS FOR C/O LEFT THIGH WOUND. THE PATIENT RATES PAIN 10/10. DENIES NUMBNESS/TINGLING IN THE EXTREMITY. WILL CONTINUE TO MONITOR THE PATIENT.
--- NOTE | 2020-07-21 19:12 | NUR ---
RADIOLOGY AT BEDSIDE
[2020-07-21] MEDS ORDERED: IV NS 0.9% 1,000 ML BAG IV ONE (20:00)
[2020-07-21] MEDS ORDERED: KETOROLAC TROMETHAMINE INJ 30 MG/ML VIAL IV ONE (20:00)
[2020-07-21] MEDS ORDERED: VANCOMYCIN 1 GM in IV D5W 250 ML IV ONE (20:00)
[2020-07-21] MEDS ORDERED: PIPERACILLIN /TAZOBACTAM 3.375 G in IV D5W 50 ML IV ONE (20:00)
--- NOTE | 2020-07-21 20:07 | NUR ---
JUNIORID SWABBED, SENT TO LAB.
--- NOTE | 2020-07-21 20:46 | NUR ---
UNABLE TO OBTAIN IV LINE, AWAITING MID LINE NURSE.
--- NOTE | 2020-07-21 20:50 | NUR ---
CALL FROM LAB. RAPID COVID NEGATIVE.
--- NOTE | 2020-07-21 21:35 | NUR ---
MIDLINE NURSE AT BEDSIDE.
--- NOTE | 2020-07-21 21:52 | NUR ---
BLOOD DRAWN AND SENT TO LAB
[2020-07-21] MEDS ORDERED: VANCOMYCIN 1 GM VIAL ONE (22:20)
[2020-07-21] MEDS ORDERED: KETOROLAC TROMETHAMINE 15 MG/ML VIAL ONE (22:20)
[2020-07-21] MEDS ORDERED: PIPERACILLIN /TAZOBACTAM 3.375 G VIAL IV ONE (22:21)
[2020-07-21 22:51] LABS: BASOPHILS % (AUTO) 0.2 % (0.0-2.0); EOSINOPHILS % (AUTO) 1.2 % (0.0-6.0); HEMATOCRIT 30 % (39-51); HEMOGLOBIN 9.6 g/dL (13.5-17.5); LYMPHOCYTES # (AUTO) 1.3 /CMM (0.8-4.8); LYMPHOCYTES % (AUTO) 7.7 % (20.0-44.0); MEAN CORPUSCULAR HGB CONC 32 g/dl (31.0-36.0); MEAN CORPUSCULAR VOLUME 73 fL (80-96); MONOCYTES # (AUTO) 1.1 /CMM (0.1-1.30); MONOCYTES % (AUTO) 6.6 % (2.0-12.0); NEUTROPHILS # (AUTO) 14.5 /CMM (1.8-8.9); NEUTROPHILS % (AUTO) 84.3 % (43.0-81.0); PLATELET COUNT (AUTO) 358 /CMM (150-450); RED BLOOD CELL COUNT(AUTO) 4.11 MIL/uL (4.5-6.0); WHITE BLOOD COUNT (AUTO) 17.2 K/uL (4.3-11.0)
[2020-07-21] MEDS ORDERED: KETOROLAC TROMETHAMINE INJ 30 MG/ML VIAL IV PRN (23:00)
[2020-07-21] MEDS ORDERED: INSULIN REGULAR, HUMAN 100 UNIT/ML 3 ML VIAL SQ PRN (23:00)
[2020-07-21] MEDS ORDERED: ONDANSETRON HCL/PF 4 MG/2 ML VIAL IVP PRN (23:00)
[2020-07-21] MEDS ORDERED: ENOXAPARIN SODIUM 40 MG/0.4 ML DISP.SYRIN SQ SCH (23:00)
[2020-07-21] MEDS ORDERED: MAGNESIUM HYDROXIDE 30 ML UDC PO PRN (23:00)
[2020-07-21] MEDS ORDERED: MAG HYDROX/AL HYDROX/SIMETH 30 ML UDC PO PRN (23:00)
[2020-07-21] MEDS ORDERED: *INSULIN REGULAR(HUMULIN R)HUM 100 UNIT/ML VIAL SQ PRN (23:00)
[2020-07-21] MEDS ORDERED: HYDROCODONE/APAP 5/325MG TABLET PO PRN (23:00)
[2020-07-21] MEDS ORDERED: ACETAMINOPHEN 325 MG TABLET PO PRN (23:00)
[2020-07-21] MEDS ORDERED: Z GUARD REMEDY 2 OZ OINT TP PRN (23:00)
[2020-07-21] MEDS ORDERED: ZOLPIDEM TARTRATE 5 MG TABLET PO PRN (23:00)
[2020-07-21] MEDS ORDERED: DEXTROSE 50%-WATER 50 ML DISP.SYRIN IV PRN (23:00)
[2020-07-21 23:05] LABS: CALCIUM, SERUM 8.4 mg/dL (8.5-10.1); CREATININE 1.2 mg/dL (0.6-1.3); POTASSIUM 3.8 mmol/L (3.5-5.1)
[2020-07-21 23:12] LABS: ALBUMIN 2.2 g/dL (3.4-5.0); BILIRUBIN,DIRECT 0.2 mg/dL (0.0-0.2); BILIRUBIN,TOTAL 0.4 mg/dL (0.2-1.0); TOTAL PROTEIN, SERUM 7.8 g/dL (6.4-8.2)
--- NOTE | 2020-07-21 23:23 | NUR ---
REPORT GIVEN TO YARA SAWYER FOR HEATHER
[2020-07-21 23:26] LABS: LYMPHOCYTES % (MANUAL) 9 % (16-48); NEUTROPHILS % (MANUAL) 80 (42-76)
[2020-07-21 23:27] LABS: EOSINOPHILS % (MANUAL) 3 % (0-4); MONOCYTES % (MANUAL) 8 % (0-11.0)
--- NOTE | 2020-07-21 23:35 | NUR ---
RN OPENING NOTE ADMIT PATIENT TO [facility] UNIT AT ROOM 118,44 YEAR OLD MALE ALERT ORIENTED X4 VERBALLY RESPONSIVE ABLE TO MAKE NEEDS KNOWN ADMITTING DIAGNOSIS: CELLULITES ON BILATERAL THIGH,ON ROOM AIR O2:97%,IV SITE IS ON RIGHT UPPER ARM,MIDLINE INTACT PATIENT,AMBULATORY WITH ASSIST CONTINENT TO BOWEL AND BLADDER,BILATERAL THIGH OPEN WOUNDS TOOK PICTURES AND PLACED ON CHART, SAFETY MEASURE IMPLEMENT,CALL LIGHT WITHIN REACH,CONTINUE TO MONITOR.BED IN LOW POSITION AND LOCKED CONTINUE TO MONITOR.
[2020-07-22 00:19] VITALS: BP 112/68
--- NOTE | 2020-07-22 02:00 | NUR ---
RN NOTE PATIENT REQUEST FOOD PROVIDED FOOD AND LIQUIDS CONTINUE TO MONITOR.
[2020-07-22] MEDS ORDERED: PIPERACILLIN /TAZOBACTAM 3.375 G VIAL IV ONE (03:46)
[2020-07-22] MEDS ORDERED: ZOSYN IVPB 3.375 G in IV D5W 50ml IV SCH (04:30)
--- NOTE | 2020-07-22 05:45 | NUR ---
RN NOTE PATIENT STATED WANTS TO LEAVE HOSPITAL,EXPLAINED HE NEEDS TO STAY HERE TO GET TREATMENT FOR HIS CELLULITES,HE INSISTED TO LEAVE CALLED DR DING, SHE SAID HE IS ALERT ORIENTED X4 AND CAN MAKE DECISION AND WE CANT KEEP HIM AGAINST HIS WILL,HE CAN SIGN AMA PAPER AND LEAVE HOSPITAL,EXPLAINED TO PATIENT RISK OF LEAVING AMA,HE VERBALIZED UNDERSTOOD AND INSISTED TO LEAVE,HE SIGNED AMA PAPER AND BELONGINGS PAPER AND LEFT HOSPITAL IN STABLE CONDITION.
[2020-07-22] MEDS ORDERED: BLOOD SUGAR DIAGNOSTIC 1 EACH STRIP VI SCH (07:30)
[2020-07-22] MEDS ORDERED: PANTOPRAZOLE 40 MG TABLET.DR PO SCH (07:30)
== END 2020-07-22 06:38 | disposition left against medical advice (07) | DRG 720 ==
LOC: ER 17:52 → MEDSG1 23:27
PROVIDERS: ADMIT Student in an Organized Health Care Education/Training Program; ATTEND Nurse Practitioner Acute Care
DX: A41.9 Sepsis, unspecified organism (principal); E44.0 Moderate protein-calorie malnutrition; E88.09 Other disorders of plasma-protein metabolism, not elsewhere classified; F11.20 Opioid dependence, uncomplicated; E11.65 Type 2 diabetes mellitus with hyperglycemia; L03.115 Cellulitis of right lower limb; D50.9 Iron deficiency anemia, unspecified; D64.9 Anemia, unspecified; F17.210 Nicotine dependence, cigarettes, uncomplicated; E86.0 Dehydration; L03.116 Cellulitis of left lower limb; E87.6 Hypokalemia; Z71.6 Tobacco abuse counseling; W45.8XXA Other foreign body or object entering through skin, initial encounter; Y93.9 Activity, unspecified; Y92.89 Other specified places as the place of occurrence of the external cause; Z68.26 Body mass index [BMI] 26.0-26.9, adult; L02.818 Cutaneous abscess of other sites; F19.11 Other psychoactive substance abuse, in remission; Z20.822 Contact with and (suspected) exposure to COVID-19
CPT/HCPCS: 36415; 71045-TC; 73552; 80048-TC; 80076-TC; 82962-TC; 83605-TC; 85025-TC; 85730-TC; 87040-TC; 87081-TC; A6253; A6403; C9803; G0378; J1650; J1815; J1885; J2543; J3370; J7030; J7050; J7060

== ENCOUNTER 2023-11-09 03:18 | Emergency (ER) | payer MEDICAID, OTHER ==
[~2023-11-09] VITALS: Ht 165.1 cm; Wt 72.6 kg
[2023-11-09 03:48] VITALS: BP 147/86; TEMP 98
[2023-11-09] MEDS ORDERED: OXYM30SP20 NS (03:59)
[2023-11-09 04:33] VITALS: O2SAT 98
== END 2023-11-09 04:34 | disposition home or self-care (01) ==
LOC: ER 03:45
DX: R04.0 Epistaxis (principal); E11.9 Type 2 diabetes mellitus without complications